=== PATIENT | female | born 1945 | race Caucasian/White ===

== ENCOUNTER 2017-06-04 13:36 | Emergency (ER) | payer MEDICARE, BC ==
[2017-06-04] MEDS ORDERED: SODIUM CHLORIDE 0.9% 500 ML IV SCH (13:45)
[2017-06-04] MEDS ORDERED: SODIUM CHLORIDE 0.9% 1,000 ML IV SCH (13:45)
[2017-06-04] MEDS ORDERED: ACETAMINOPHEN TAB 500 MG TAB PO STA (13:46)
[2017-06-04 14:03] VITALS: TEMP 100.3
[2017-06-04 14:23] LABS: Basophils # (A) 0.1 k/uL (0-0.2); Basophils % (A) 1 %; CH 30.8; CHCM 33.3; Eosinophils # (A) 0.1 k/uL (0-0.7); Eosinophils % (A) 1 %; HDW 2.87; Luc % (Auto) 1; Lymphocytes # (A) 1.1 k/uL (1.0-4.8); Lymphocytes % (A) 13 %; MCHC 32.2 g/dL (31.0-37.0); MCV 93.2 fL (80.0-100.0); Mean Platelet Volume 7.3; Monocytes # (A) 0.5 k/uL (0-1.0); Monocytes % (A) 5 %; Neutrophils # (A) 6.9 k/uL (1.3-7.7); Neutrophils % (A) 80 %; RDW 15.2 % (11.5-15.5); WBC 8.6 k/uL (3.8-10.6); WBC (Perox) 8.18
[2017-06-04 14:34] LABS: Calcium 10.6 mg/dL (8.4-10.2); Potassium 4.5 mmol/L (3.5-5.1); Total Bilirubin 1.1 mg/dL (0.2-1.3); Total Protein 8.5 g/dL (6.3-8.2)
[2017-06-04 14:36] LABS: INR 1.1 (<1.2); Partial Thromboplastin Time 24.6 sec (22.0-30.0); Prothrombin Time 10.9 sec (9.0-12.0)
--- NOTE | 2017-06-04 14:47 | ED ---
Altered Mental Status HPI - General Chief Complaint: Altered Mental Status Stated Complaint: confusion Time Seen by Provider: 06/04/17 13:43 Source: EMS Mode of arrival: EMS Limitations: altered mental status - History of Present Illness Initial Comments: This is a 71-year-old male with a history of recent dental procedure who presents emergency department for mental status changes. Per EMS is been going on for last couple of days. The patient states that he feels like he just can' t collect his thoughts. He states that it's been gradually worsening. The patient is able to communicate effectively however does confuse words at times and seems to lose his train of thought. He denies any fevers or chills. He admits to some soreness in his head however denies any headache. He states that he thinks the soreness is from the procedure. No chest pain or shortness of breath. No abdominal pain. No other complaints. - Related Data Home Medications Medication Instructions Recorded Confirmed Unable To Assess [Unable to Assess] 06/04/17 06/04/17 Allergies Allergy/AdvReac Type Severity Reaction Status Date / Time No Known Allergies Allergy Verified 06/04/17 13:50 Review of Systems ROS Statement: Those systems with pertinent positive or pertinent negative responses have been documented in the HPI. ROS Other: All systems not noted in ROS Statement are negative. Past Medical History Past Medical History: No Reported History Past Surgical History: No Surgical Hx Reported General Exam - General Exam Comments Initial Comments: Constitutional: Awake alert Appears comfortable Head: Normocephalic atraumatic Eyes: no conjunctival injection No scleral icterus EOMI, pupils are 4 mm and reactive bilaterally Neck: No JVD Supple, no meningismus Heart: Regular rate rhythm normal S1-S2 no murmurs Lungs: Clear to auscultation bilaterally No wheezing No rales Abdomen: Soft nondistended nontender Extremities: Non edematous DP pulses intact Radial pulses intact Neuro: A&Ox3, cranial nerves II through XII are grossly intact, 5 out of 5 strength in upper and lower Chev[place] bilaterally, sensation intact to light touch in all extremities, the patient does have fluent speech however he confuses words at times and seems to lose his train of thought in the middle of sentence. Psych: Appropriate mood and affect Limitations: altered mental status Course Vital Signs 06/04/17 06/04/17 13:38 14:50 Temperature 100.3 F H Pulse Rate 87 84 Respiratory 16 18 Rate Blood Pressure 124/82 121/83 O2 Sat by Pulse 96 97 Oximetry - Reevaluation(s) Reevaluation #1: 06/04/17 14:46 EKG showing normal sinus rhythm with a rate of 85. No abnormal ST segment changes or T-wave inversion. QTC is 421. Other intervals normal. No ectopy. Reevaluation #2: 06/04/17 15:07 Notified about hemorrhagic stroke I radiology. Arranging transfer to [facility]. Medical Decision Making - Medical Decision Making This is a 8-year-old male who presents emergency department for mental status changes. The patient had a computed tomography scan that showed hemorrhagic CVA. Due to the patient's condition and he'll be transferred to [facility] with Dr. Prasad in the ER who accepted the transfer. The patient is currently stable. Blood pressure is normal. Does not take any anticoagulation. Airway is patent and is answering questions normally. Patient is stable for transfer at this time. - Lab Data Result diagrams: 06/04/17 14:12 06/04/17 14:12 Lab Results 06/04/17 06/04/17 06/04/17 Range/Units 14:12 14:12 14:12 WBC 8.6 (3.8-10.6) k/uL RBC 5.60 H (3.80-5.40) m/uL Hgb 16.8 H (11.4-16.0) gm/dL Hct 52.2 H (34.0-46.0) % MCV 93.2 (80.0-100.0) fL MCH 30.0 (25.0-35.0) pg MCHC 32.2 (31.0-37.0) g/dL RDW 15.2 (11.5-15.5) % Plt Count 234 (150-450) k/uL Neutrophils % 80 % Lymphocytes % 13 % Monocytes % 5 % Eosinophils % 1 % Basophils % 1 % Neutrophils # 6.9 (1.3-7.7) k/uL Lymphocytes # 1.1 (1.0-4.8) k/uL Monocytes # 0.5 (0-1.0) k/uL Eosinophils # 0.1 (0-0.7) k/uL Basophils # 0.1 (0-0.2) k/uL PT (9.0-12.0) sec INR (<1.2) APTT (22.0-30.0) sec Sodium 140 (137-145) mmol/L Potassium 4.5 (3.5-5.1) mmol/L Chloride 98 (98-107) mmol/L Carbon Dioxide 28 (22-30) mmol/L Anion Gap 14 mmol/L BUN 16 (7-17) mg/dL Creatinine 1.10 H (0.52-1.04) mg/dL Est GFR (MDRD) Af Amer 60 (>60 ml/min/1.73 sqM) Est GFR (MDRD) Non-Af 49 (>60 ml/min/1.73 sqM) Glucose 104 H (74-99) mg/dL Plasma Lactic Acid Reynold 1.7 (0.7-2.0) mmol/L Calcium 10.6 H (8.4-10.2) mg/dL Total Bilirubin 1.1 (0.2-1.3) mg/dL AST 53 H (14-36) U/L ALT 60 H (9-52) U/L Alkaline Phosphatase 70 (38-126) U/L Troponin I (0.000-0.034) ng/mL Total Protein 8.5 H (6.3-8.2) g/dL Albumin 5.0 (3.5-5.0) g/dL 06/04/17 06/04/17 Range/Units 14:12 14:12 WBC (3.8-10.6) k/uL RBC (3.80-5.40) m/uL Hgb (11.4-16.0) gm/dL Hct (34.0-46.0) % MCV (80.0-100.0) fL MCH (25.0-35.0) pg MCHC (31.0-37.0) g/dL RDW (11.5-15.5) % Plt Count (150-450) k/uL Neutrophils % % Lymphocytes % % Monocytes % % Eosinophils % % Basophils % % Neutrophils # (1.3-7.7) k/uL Lymphocytes # (1.0-4.8) k/uL Monocytes # (0-1.0) k/uL Eosinophils # (0-0.7) k/uL Basophils # (0-0.2) k/uL PT 10.9 (9.0-12.0) sec INR 1.1 (<1.2) APTT 24.6 (22.0-30.0) sec Sodium (137-145) mmol/L Potassium (3.5-5.1) mmol/L Chloride (98-107) mmol/L Carbon Dioxide (22-30) mmol/L Anion Gap mmol/L BUN (7-17) mg/dL Creatinine (0.52-1.04) mg/dL Est GFR (MDRD) Af Amer (>60 ml/min/1.73 sqM) Est GFR (MDRD) Non-Af (>60 ml/min/1.73 sqM) Glucose (74-99) mg/dL Plasma Lactic Acid Reynold (0.7-2.0) mmol/L Calcium (8.4-10.2) mg/dL Total Bilirubin (0.2-1.3) mg/dL AST (14-36) U/L ALT (9-52) U/L Alkaline Phosphatase (38-126) U/L Troponin I <0.012 (0.000-0.034) ng/mL Total Protein (6.3-8.2) g/dL Albumin (3.5-5.0) g/dL Disposition Clinical Impression: Hemorrhagic stroke Disposition: OTHER INSTITUTION NOT DEFINED Condition: Stable - Out of Hospital Transfer - Req. Specs Out of Hospital Transfer - Requested Specifics: Other Emergency Center ([facility])
[2017-06-04 15:03] VITALS: RESP 18
--- NOTE | 2017-06-04 15:13 | CT ---
EXAMINATION TYPE: CT brain wo con DATE OF EXAM: 06/04/2017 COMPARISON: NONE HISTORY: Confusion. Dental procedure x1 month ago. CT DLP: 1165 mGycm Automated exposure control for dose reduction was used. FINDINGS: There is a large area of low attenuation involving the left parietal, occipital and temporal lobes. T here also is hyperdensity within the region measuring 2 cm. There is an adjacent area measuring 1.5 c m of hyperdensity compatible with 2 areas of intraparenchymal hemorrhage. A small amount of subarachn oid extension is suspected. There does appear to be a 2 mm midline shift from [id number]. Tiny hyperdensity within the basal ganglia on the left is too small to characterize. Changes of chronic sinusitis noted. Area of atherosclerotic plaque involving the left MCA noted. There is mild generalized degenerative change of low attenuation the periventricular region which is nonspecific but likely related to remote ischemic white matter change. Tiny area of remote lacunar infarction involving the right basal ganglia. IMPRESSION: 1. Large area of suspected acute ischemia within the left temporal, occipital and parietal lobes with multifocal areas of acute hemorrhage. The largest area measures approximately 2 cm in the left parie geoffrey occipital junction. Small amount of subarachnoid extension is suspected. Findings mostly likely r elated to hemorrhagic infarction. Follow-up to resolution recommended to exclude underlying hemorrhag ic neoplasm. 2 mm midline shift from [id number] noted. Follow-up with MRI recommended. 2. Intracranial atherosclerotic changes involving the MCA suspected on the right.
--- NOTE | 2017-06-04 15:15 | XR ---
EXAMINATION TYPE: XR chest 2V DATE OF EXAM: 06/04/2017 COMPARISON: NONE HISTORY: Fever and confusion TECHNIQUE: Frontal and lateral views of the chest are obtained. FINDINGS: There are elevated anterior aspect of both hemidiaphragms with patchy left basilar atelect asis. The cardiac silhouette size is upper limits of normal with atherosclerotic thoracic aorta. The re is multilevel spurring in the mid to lower thoracic spine. There is partial visualization of surgi herbert change in the right shoulder. IMPRESSION: No suspicious acute infiltrate.
[2017-06-04 15:16] VITALS: BP 119/73; PULSE 80
[2017-06-13 07:53] LABS: HCT 52.2 % (39.0-53.0); HGB 16.8 gm/dL (13.0-17.5)
== END 2017-06-04 15:49 | disposition short-term general hospital (02) ==
LOC: EDSEX → EC 13:36
DX: I62.9 Nontraumatic intracranial hemorrhage, unspecified (principal)
CPT/HCPCS: 36415; 70450; 71020; 80053; 83605; 84484; 85025; 85610; 85730; 87040; 87502; 93005; 96360; 99285